=== PATIENT | female | born 1995 | race Two or more races ===

== ENCOUNTER 2021-09-24 19:22 | Emergency (ER) | payer OTHER ==
[~2021-09-24] VITALS: Ht 165.1 cm; Wt 95.7 kg
== END 2021-09-24 21:42 | disposition home or self-care (01) ==
LOC: ER 19:22
DX: S01.90XA Unspecified open wound of unspecified part of head, initial encounter (principal); W26.8XXA Contact with other sharp object(s), not elsewhere classified, initial encounter; Y92.019 Unspecified place in single-family (private) house as the place of occurrence of the external cause

== ENCOUNTER 2023-11-19 16:45 | Emergency (ER) | payer OTHER ==
[~2023-11-19] VITALS: Ht 170.2 cm; Wt 122.5 kg
[2023-11-19] MEDS ORDERED: PROMETHAZINE W473 ML PO (22:14)
[2023-11-19] MEDS ORDERED: OSEL75CA PO (22:14)
[2023-11-19] MEDS ORDERED: ALBUTEROL2.5 MG/3 M IH (22:14)
[2023-11-19] MEDS ORDERED: BUDESONIDE0.5 MG/2 M IH (22:14)
== END 2023-11-19 22:22 | disposition home or self-care (01) ==
LOC: ER 16:46
DX: J45.901 Unspecified asthma with (acute) exacerbation (principal); J10.1 Influenza due to other identified influenza virus with other respiratory manifestations; Z91.013 Allergy to seafood; Z20.822 Contact with and (suspected) exposure to COVID-19

== ENCOUNTER 2024-10-17 16:19 | Emergency (ER) | payer OTHER ==
[~2024-10-17] VITALS: Ht 165.1 cm; Wt 118.8 kg
[~2024-10-17 16:19] MED LIST: ALBUTEROL2.5 MG/3 M IH; BUDESONIDE0.5 MG/2 M IH; OSEL75CA PO; PROMETHAZINE W473 ML PO
[2024-10-17] MEDS ORDERED: LIDOCAINE HCL 1% 10ML VIAL IJ ONE (18:15)
== END 2024-10-17 19:47 | disposition home or self-care (01) ==
LOC: ER 16:21
DX: S62.524A Nondisplaced fracture of distal phalanx of right thumb, initial encounter for closed fracture (principal); X58.XXXA Exposure to other specified factors, initial encounter; Y93.89 Activity, other specified; Y92.89 Other specified places as the place of occurrence of the external cause; Y99.9 Unspecified external cause status; Z87.09 Personal history of other diseases of the respiratory system; Z91.013 Allergy to seafood